=== PATIENT | female | born 1930 | race Caucasian/White ===

== ENCOUNTER 2017-12-28 11:16 | Inpatient (IN) | payer OTHER ==
[2017-12-28 11:42] LABS: ADD MAN DIFF? NO
[2017-12-28 11:46] LABS: BASOPHILS % 0.1 % (0.0-2.0); HEMATOCRIT 30.3 % (37.0-47.0); HEMOGLOBIN 9.6 g/dl (12.0-16.0); LYMPHOCYTES # 1.9 10^3/ul (0.8-2.9); LYMPHOCYTES % 15.1 % (15.0-51.0); MEAN CORPUSCULAR HEMOGLOBIN 30.8 pg (29.0-33.0); MEAN CORPUSCULAR HGB CONC 31.7 g/dl (32.0-37.0); MEAN CORPUSCULAR VOLUME 97.1 fl (82.0-101.0); MEAN PLATELET VOLUME 11.1 fl (7.4-10.4); MONOCYTE # 0.2 10^3/ul (0.3-0.9); MONOCYTES % 1.6 % (0.0-11.0); NEUTROPHIL # 10.3 10^3/ul (1.6-7.5); NEUTROPHILS % 82.8 % (39.0-77.0); PLATELET COUNT 257 10^3/UL (140-415); RED BLOOD COUNT 3.12 10^6/ul (4.20-5.40); RED CELL DISTRIBUTION WIDTH 13.2 % (11.5-14.5)
[2017-12-28 11:46] LABS: WHITE BLOOD COUNT 12.4 10^3/ul (4.8-10.8)
[2017-12-28 12:02] LABS: ALANINE AMINOTRANSFERASE 14 IU/L (13-69); ALBUMIN 3.5 g/dl (3.3-4.9); ALBUMIN/GLOBULIN RATIO 0.85; ALKALINE PHOSPHATASE 69 IU/L (42-121); ANION GAP 12 (8-16); ASPARTATE AMINO TRANSFERASE 22 IU/L (15-46); BILIRUBIN,INDIRECT 0.5 mg/dl (0-1.1); BILIRUBIN,TOTAL 0.5 mg/dl (0.2-1.3); BLOOD UREA NITROGEN 58 mg/dl (7-20); CALCIUM 8.8 mg/dl (8.4-10.2); CARBON DIOXIDE 22 mmol/L (21-31); CHLORIDE 111 mmol/L (97-110); CREATININE 0.41 mg/dl (0.44-1.00); GLUCOSE 288 mg/dl (70-220); POTASSIUM 5.4 mmol/L (3.5-5.1); SODIUM 140 mmol/L (135-144); TOTAL PROTEIN 7.6 g/dl (6.1-8.1)
[2017-12-28 12:14] LABS: TROPONIN-I < 0.012 ng/ml (0.000-0.120)
[2017-12-28 12:27] LABS: INR 1.13; PROTIME 14.7 Sec (11.9-14.9); PT RATIO 1.1
[2017-12-28 12:28] LABS: PARTIAL THROMBOPLASTIN TIME 31.2 Sec (25.0-35.0)
[2017-12-28] MEDS: SOD CHLORIDE 0.9% 500 ML IV (13:06)
[2017-12-28] MEDS ORDERED: PANTOPRAZOLE 40 MG INJ IV (13:30)
[2017-12-28] MEDS ORDERED: ACETAMINOPHEN 325 MG TAB PO (14:00)
[2017-12-28] MEDS ORDERED: ONDANSETRON 4 MG INJ IV (14:00)
[2017-12-28 14:11] LABS: AADO2 Arterial 101.6 mmHg (7.0-24.0); Allen Test ACCEPTAB; Arterial Base Excess -2.2 mmol/L (-3.0-3); Arterial Blood Gas Oxygen Sat 98.7 mmHG (95.0-100.0); Arterial COHb 0.3 % (0.0-3.0); Arterial Fraction of Oxyhgb 98.2 % (93.0-99.0); Arterial HCO3 21.8 mmol/L (22.0-26.0); Arterial MetHb 0.2 % (0.0-1.5); Arterial Total Hemglobin 11.6 g/dl (12.0-18.0); Arterial pCO2 34.5 mmhg (35-45); MODE VENT - AC; Site Right Radial
[2017-12-28] MEDS ORDERED: GLUCAGON 1 MG INJ IM (14:30)
[2017-12-28] MEDS ORDERED: GLUCOSE GEL 15 GRAM TUBE BUCCAL (14:30)
[2017-12-28] MEDS ORDERED: DEXTROSE 50% 50 ML SYRINGE IV ×2 (14:30)
[2017-12-28] MEDS ORDERED: GLUCOSE GEL 15 GRAM TUBE PO ×2 (14:30)
[2017-12-28] MEDS ORDERED: NACL 0.9% 3 ML SYG IV (16:00)
[2017-12-28 16:33] LABS: ADD MAN DIFF? NO
[2017-12-28 16:34] LABS: BASOPHILS % 0.1 % (0.0-2.0); HEMOGLOBIN 8.5 g/dl (12.0-16.0); LYMPHOCYTES # 1.9 10^3/ul (0.8-2.9); LYMPHOCYTES % 18.6 % (15.0-51.0); MEAN CORPUSCULAR HEMOGLOBIN 31.7 pg (29.0-33.0); MEAN CORPUSCULAR HGB CONC 32.7 g/dl (32.0-37.0); MEAN PLATELET VOLUME 11.9 fl (7.4-10.4); MONOCYTE # 0.2 10^3/ul (0.3-0.9); MONOCYTES % 1.6 % (0.0-11.0); NEUTROPHILS % 79.4 % (39.0-77.0); PLATELET COUNT 211 10^3/UL (140-415); RED BLOOD COUNT 2.68 10^6/ul (4.20-5.40); RED CELL DISTRIBUTION WIDTH 13.3 % (11.5-14.5)
[2017-12-28] MEDS: DEXTROSE 5%-0.45% NACL 1,000 ML IV (17:00)
[2017-12-28] MEDS: INSULIN ASPART [NOVOLOG] 3 ML PEN SC ×3 (17:02→20:57)
[2017-12-28] MEDS: PANTOPRAZOLE IV 80 MG in SOD CHLORIDE 0.9% 100 ML IV ×2 (18:20)
[2017-12-28] MEDS: clonAZEPAM 0.5 MG TAB GTB (20:46)
[2017-12-28] MEDS: INSULIN GLARGINE [LANTus] (100 UNITS/ML) SYG SC (20:57)
[2017-12-29] MEDS: ACCU-CHEK XX (01:09)
[2017-12-29] MEDS: DEXTROSE 5%-0.45% NACL 1,000 ML IV ×2 (05:28→19:10)
[2017-12-29] MEDS: INSULIN ASPART [NOVOLOG] 3 ML PEN SC ×3 (05:33→18:06)
[2017-12-29 06:11] LABS: ADD MAN DIFF? NO; BASOPHILS % 0.1 % (0.0-2.0); EOSINOPHILS % 0.1 % (0.0-7.0); HEMATOCRIT 25.6 % (37.0-47.0); HEMOGLOBIN 8.1 g/dl (12.0-16.0); LYMPHOCYTES # 3.5 10^3/ul (0.8-2.9); MEAN CORPUSCULAR HEMOGLOBIN 30.6 pg (29.0-33.0); MEAN CORPUSCULAR HGB CONC 31.6 g/dl (32.0-37.0); MEAN CORPUSCULAR VOLUME 96.6 fl (82.0-101.0); MEAN PLATELET VOLUME 11.4 fl (7.4-10.4); MONOCYTE # 0.6 10^3/ul (0.3-0.9); MONOCYTES % 5.7 % (0.0-11.0); NEUTROPHIL # 5.9 10^3/ul (1.6-7.5); NEUTROPHILS % 58.8 % (39.0-77.0); PLATELET COUNT 233 10^3/UL (140-415); RED BLOOD COUNT 2.65 10^6/ul (4.20-5.40); RED CELL DISTRIBUTION WIDTH 13.4 % (11.5-14.5)
[2017-12-29] MEDS: LEVOTHYROXINE 125 MCG TAB GTB (06:11)
[2017-12-29 06:42] LABS: HEMOGLOBIN A1C 6.3 % (0-5.9)
[2017-12-29 07:04] LABS: ALANINE AMINOTRANSFERASE 26 IU/L (13-69); ALBUMIN 3.1 g/dl (3.3-4.9); ALBUMIN/GLOBULIN RATIO 0.75; ALKALINE PHOSPHATASE 66 IU/L (42-121); ANION GAP 11 (8-16); ASPARTATE AMINO TRANSFERASE 19 IU/L (15-46); BILIRUBIN,INDIRECT 0.4 mg/dl (0-1.1); BILIRUBIN,TOTAL 0.4 mg/dl (0.2-1.3); BLOOD UREA NITROGEN 45 mg/dl (7-20); CALCIUM 8.8 mg/dl (8.4-10.2); CARBON DIOXIDE 24 mmol/L (21-31); CHLORIDE 112 mmol/L (97-110); CREATININE 0.38 mg/dl (0.44-1.00); GLUCOSE 189 mg/dl (70-220); POTASSIUM 3.8 mmol/L (3.5-5.1); SODIUM 143 mmol/L (135-144); TOTAL PROTEIN 7.2 g/dl (6.1-8.1)
[2017-12-29] MEDS: QUETIAPINE 25 MG TAB GTB (10:03)
[2017-12-29] MEDS: traMADol 50 MG TAB GTB ×2 (10:03→17:22)
[2017-12-29] MEDS: clonAZEPAM 0.5 MG TAB GTB ×2 (10:03→20:23)
[2017-12-29] MEDS: INSULIN GLARGINE [LANTus] (100 UNITS/ML) SYG SC (20:36)
[2017-12-30] MEDS: INSULIN ASPART [NOVOLOG] 3 ML PEN SC ×5 (05:34→23:56)
[2017-12-30] MEDS ORDERED: INSULIN ASPART [NOVOLOG] 3 ML PEN SC (06:00)
[2017-12-30] MEDS: LEVOTHYROXINE 125 MCG TAB GTB (06:52)
[2017-12-30] MEDS: DEXTROSE 5%-0.45% NACL 1,000 ML IV (08:30)
[2017-12-30] MEDS: clonAZEPAM 0.5 MG TAB GTB ×2 (08:32→21:30)
[2017-12-30] MEDS: QUETIAPINE 25 MG TAB GTB (08:32)
[2017-12-30] MEDS ORDERED: PROPOFOL 20 ML (13:13)
[2017-12-30] MEDS ORDERED: ETOMIDATE 20 MG INJ (13:14)
[2017-12-30] MEDS: MUPIROCIN 2% 22 GM OINT TOP ×2 (14:22→21:30)
[2017-12-30] MEDS ORDERED: VASOPRESSIN 20 UNITS INJ (14:49)
[2017-12-30] MEDS ORDERED: PROPOFOL 40 ML (14:49)
[2017-12-30] MEDS ORDERED: PHENYLephrine (100 MCG/ML) 5ML SYG (14:50)
[2017-12-30] MEDS: NYSTATIN 30 GM POWDER BTL TOP (21:30)
[2017-12-30] MEDS: traMADol 50 MG TAB GTB (21:30)
[2017-12-30] MEDS: INSULIN GLARGINE [LANTus] (100 UNITS/ML) SYG SC (21:48)
[2017-12-31] MEDS: INSULIN ASPART [NOVOLOG] 3 ML PEN SC ×3 (06:01→17:26)
[2017-12-31] MEDS: LEVOTHYROXINE 125 MCG TAB GTB (06:01)
[2017-12-31 06:49] LABS: ADD MAN DIFF? NO
[2017-12-31 06:57] LABS: WHITE BLOOD COUNT 8.7 10^3/ul (4.8-10.8)
[2017-12-31 06:57] LABS: BASOPHILS % 0.2 % (0.0-2.0); EOSINOPHILS % 0.1 % (0.0-7.0); HEMATOCRIT 27.1 % (37.0-47.0); HEMOGLOBIN 8.4 g/dl (12.0-16.0); LYMPHOCYTES # 2.5 10^3/ul (0.8-2.9); MEAN CORPUSCULAR HEMOGLOBIN 30.9 pg (29.0-33.0); MEAN CORPUSCULAR VOLUME 99.6 fl (82.0-101.0); MEAN PLATELET VOLUME 11.5 fl (7.4-10.4); MONOCYTE # 0.8 10^3/ul (0.3-0.9); NEUTROPHIL # 5.3 10^3/ul (1.6-7.5); NEUTROPHILS % 61.2 % (39.0-77.0); NUCLEATED RED BLOOD CELLS% 0.2 /100WBC (0.0-0.0); PLATELET COUNT 206 10^3/UL (140-415); RED BLOOD COUNT 2.72 10^6/ul (4.20-5.40); RED CELL DISTRIBUTION WIDTH 13.7 % (11.5-14.5)
[2017-12-31 08:46] LABS: ANION GAP 9 (8-16); BLOOD UREA NITROGEN 20 mg/dl (7-20); CALCIUM 8.6 mg/dl (8.4-10.2); CARBON DIOXIDE 26 mmol/L (21-31); CHLORIDE 110 mmol/L (97-110); CREATININE 0.35 mg/dl (0.44-1.00); GLUCOSE 170 mg/dl (70-220); POTASSIUM 3.7 mmol/L (3.5-5.1); SODIUM 141 mmol/L (135-144)
[2017-12-31] MEDS: QUETIAPINE 25 MG TAB GTB (09:17)
[2017-12-31] MEDS: clonAZEPAM 0.5 MG TAB GTB (09:17)
[2017-12-31] MEDS: NYSTATIN 30 GM POWDER BTL TOP (09:17)
[2017-12-31] MEDS: MUPIROCIN 2% 22 GM OINT TOP (09:17)
== END 2017-12-31 22:04 | DRG 377 ==
LOC: E/R 11:16 → 6WM 13:47
PROC: 0DJ08ZZ Inspection of Upper Intestinal Tract, Via Natural or Artificial Opening Endoscopic (ICD-10-PCS; principal; 2017-12-30 13:30)
PROC: 5A1945Z Respiratory Ventilation, 24-96 Consecutive Hours (ICD-10-PCS; 2017-12-30 13:35)
PROC: 4A033R1 Measurement of Arterial Saturation, Peripheral, Percutaneous Approach (ICD-10-PCS; 2017-12-30 13:35)
DX: K92.1 Melena (principal); G82.50 Quadriplegia, unspecified; D62 Acute posthemorrhagic anemia; J96.10 Chronic respiratory failure, unspecified whether with hypoxia or hypercapnia; Z99.11 Dependence on respirator [ventilator] status; K92.0 Hematemesis; I10 Essential (primary) hypertension; E11.9 Type 2 diabetes mellitus without complications; G70.00 Myasthenia gravis without (acute) exacerbation; G20 Parkinson's disease; J39.2 Other diseases of pharynx; D63.8 Anemia in other chronic diseases classified elsewhere; R13.10 Dysphagia, unspecified; G40.909 Epilepsy, unspecified, not intractable, without status epilepticus; Z93.0 Tracheostomy status; Z79.4 Long term (current) use of insulin; Z79.82 Long term (current) use of aspirin; Z88.0 Allergy status to penicillin
CPT/HCPCS: 36600; 80048; 80053; 82803; 82962; 83036; 83735; 84484; 85025; 85610; 85730; 86850; 86900; 86901; 86920; 87081; 93005; 94002; 94003; 99285-25